=== PATIENT | female | born 1960 | race Caucasian/White ===

== ENCOUNTER → 2025-03-07 | Outpatient (CLI) | payer MEDICARE, SELFPAY ==
--- NOTE | 2025-03-07 13:15 | XR_ITS ---
Examination: Screening digital mammography, bilateral Computer aided detection 3-D breast Tomosynthesis, bilateral Date and time of exam: March 07, 2025 1307 hours Compared to mammograms dating to June 11, 2011 Indication: Screening Technique: Nonmagnified MLO, CC views of the breasts to been obtained, reconstructed from 3-D Tomosynthesis images. R2 computer aided detection program utilized for evaluation of suspicious masses and/or abnormal calcifications. 3-D Tomosynthesis images obtained. Findings: Scattered areas of fibroglandular density. Scar formation upper outer right breast Benign calcifications. No interval suspicious masses Impression: BI-RADS category II: Benign Findings. Recommend 1 year follow-up mammogram.
--- NOTE | 2025-03-07 13:35 | XR_ITS ---
Examination: Bone densitometry Date and time of exam:March 07, 2025 1325 hours INDICATIONS: Hysterectomy age 46 Technique: Lumbar spine and hip total bone mineralization values of an calculated. Peak reference and age match control results have been displayed. Findings: Lumbar spine total bone mineralization is1.002 gm/cm2. This is 0.4 standard deviations below peak reference. This is 1.4 standard deviations above age-matched controls. Hip total bone mineralization is 0.689 gm/cm2 This is 2.1 standard deviations below peak reference. This is 0.8 standard deviations below age-matched controls Impression: There is normal mineralization based on lumbar spine measurements. There is osteoporosis based on hip measurements
== END | disposition home or self-care (01) ==
DX: Z12.31 Encounter for screening mammogram for malignant neoplasm of breast (principal); Z13.820 Encounter for screening for osteoporosis; R92.323 Mammographic fibroglandular density, bilateral breasts; M81.0 Age-related osteoporosis without current pathological fracture; Z87.891 Personal history of nicotine dependence
CPT/HCPCS: 77063; 77067; 77080

== ENCOUNTER → 2025-04-20 | Outpatient (CLI) | payer MEDICARE, MEDICAID, SELFPAY ==
--- NOTE | 2025-04-20 14:50 | XR_ITS ---
Examination: Ultrasound soft tissue left axilla TECHNIQUE: Grayscale sonographic images soft tissue left axilla Date and time: April 20, 2025 1456 hours INDICATIONS: Left arm axillary pain and tenderness beginning 3 months ago FINDINGS: 13 mm left side lymph node 13 x 9 x 11 mm IMPRESSION: BI-RADS Category 2: Benign findings Consider left breast sonography follow-up
== END | disposition home or self-care (01) ==
DX: M79.602 Pain in left arm (principal)
CPT/HCPCS: 76882

== ENCOUNTER → 2025-05-11 | Outpatient (CLI) | payer MEDICARE, MEDICAID, SELFPAY ==
--- NOTE | 2025-05-11 16:00 | XR_ITS ---
Examination: Breast ultrasound, unilateral, left complete Date and time of exam: May 11, 2025 1551 hours INDICATIONS: Left axillary pain beginning 4 months ago Technique: Real-time king scale ultrasonographic imaging performed left breast including all 4 quadrants as well as nipple retroareolar and axillary region. Findings: No cystic or solid mass Normal lymph nodes in the left axilla IMPRESSION: BI-RADS Category 2: Benign findings
== END | disposition home or self-care (01) ==
LOC: CDIM 15:38
DX: M79.622 Pain in left upper arm (principal)
CPT/HCPCS: 76641